=== PATIENT | female | born 1985 | race Caucasian/White ===

== ENCOUNTER 2016-09-13 02:44 | Inpatient (IN) | payer MEDICAID ==
[~2016-09-13] VITALS: Ht 154.9 cm; Wt 56.0 kg
[2016-09-13] VITALS (31 sets, daily range): BP systolic 87–124; BP diastolic 43–66; PULSE 88–129; RESP 15–20; TEMP 98; Ht 154.9 cm; Wt 56.0 kg
[~2016-09-13 02:44] MED LIST: IBUP800T25 PO; PERCOCET PO; PREN1TAB62 PO
--- NOTE | 2016-09-13 03:39 | ERD ---
ER Documentation Chief Complaint Date/Time DATE: 09/13/16 TIME: 03:36 Chief Complaint PELVIC PAIN AND VOMITING AND BURNING PAIN UPON URINATION HPI 31-year-old female complaining of vomiting 2-3 hours. Patient had 5 episodes of vomiting. She has diarrhea as well. Complaining of abdominal pain and pelvic pain. The abdominal pain comes every 5 minutes, very strong. The pain is not relieved with diarrhea. Denies flank pain. Denies dysuria. Denies fever or chills. Denies vaginal bleeding. Patient is on Depo-Provera, last injection was 08/22/2016. LMP 07/15/2016. ROS All systems reviewed and are negative except as per history of present illness. Medications Home Meds Active Scripts Oxycodone Hcl/Acetaminophen (Percocet) 1 Tab Tab, 2 TAB PO Q4H Y for PAIN LEVEL 6-10, #30 TAB 0 Refills Prov:LONNIE GEE MD 09/28/15 Ibuprofen* (Ibuprofen*) 800 Mg Tab, 800 MG PO Q8, #20 TAB 0 Refills Prov:LONNIE GEE MD 09/28/15 Reported Medications Vit-Iron Fumarate-FA ( Vitamin Tablet) 1 Each Tablet, 1 TAB PO DAILY, TAB 09/25/15 Allergies Allergies: Coded Allergies: No Known Allergy (Unverified , 09/26/15) PMhx/Soc Medical and Surgical Hx: pt denies Medical Hx History of Surgery: Yes (c/section x2) Hx Alcohol Use: No Hx Substance Use: No Hx Tobacco Use: No Smoking Status: Never smoker Physical Exam Vitals Vital Signs Date Time Temp Pulse Resp B/P Pulse Ox O2 Delivery O2 Flow Rate FiO2 09/13/16 05:02 97.8 77 16 88/65 100 Room Air 09/13/16 02:47 98.2 83 20 101/55 97 Physical Exam General impression: Well-developed, well-nourished. Alert, oriented, in no acute distress Head: Normocephalic, atraumatic. Respiration: Normal respiratory effort. Lungs clear to auscultate bilaterally. No wheezes, rales or rhonchi. Cardiovascular: Regular rate and rhythm. No murmurs or extra heart sounds. Abdomen: Abdomen normal to inspection. Diffuse abdominal tenderness, with right lower quadrant more than the rest. No rebound or guarding. No masses or organomegaly. Bowel sounds normal. Back: Normal to inspection. No midline spine tenderness. No CVA tenderness. Neuro: Mental status normal, speech normal. Skin: Normal turgor. No rash or lesions. Psych: Normal mood and affect. Result Diagram: 09/13/16 0338 09/13/16 0338 Results 24 hrs Laboratory Tests Test 09/13/16 03:35 09/13/16 03:38 09/13/16 04:27 Activated Partial Thromboplast Time 23.3Sec INR International Normalized Ratio 1.01 Prothrombin Time 13.3Sec Prothrombin Time Ratio 1.0 Alanine Aminotransferase (ALT/SGPT) 29IU/L Albumin 4.1g/dl Albumin/Globulin Ratio 1.20 Alkaline Phosphatase 82IU/L Anion Gap 17 Aspartate Amino Transf (AST/SGOT) 15IU/L Basophils # 0.010^3/ul Basophils % 0.1% Blood Urea Nitrogen 11mg/dl Calcium Level 9.1mg/dl Carbon Dioxide Level 25mmol/L Chloride Level 104mmol/L Creatinine 0.57mg/dl Direct Bilirubin 0.00mg/dl Eosinophils # 0.010^3/ul Eosinophils % 0.1% Globulin 3.40g/dl Glucose Level 129mg/dl Hematocrit 36.6% Hemoglobin 12.7g/dl Indirect Bilirubin 0.3mg/dl Lipase 86U/L Lymphocytes # 1.410^3/ul Lymphocytes % 7.1% Mean Corpuscular Hemoglobin 30.3pg Mean Corpuscular Hemoglobin Concent 34.8g/dl Mean Corpuscular Volume 87.1fl Mean Platelet Volume 8.9fl Monocytes # 0.710^3/ul Monocytes % 3.6% Neutrophils # 17.210^3/ul Neutrophils % 89.1% Nucleated Red Blood Cells # 0.010^3/ul Nucleated Red Blood Cells % 0.0/100WBC Platelet Count 02390^3/UL Potassium Level 3.6mmol/L Red Blood Count 4.2010^6/ul Red Cell Distribution Width 13.2% Sodium Level 142mmol/L Total Bilirubin 0.3mg/dl Total Protein 7.5g/dl White Blood Count 19.310^3/ul Urine Bacteria MANY Urine Bilirubin 1+ Urine Clarity CLEAR Urine Color YELLOW Urine Glucose NEGATIVE% Urine Hemoglobin 3+ Urine Ictotest NEGATIVE Urine Ketones NEGATIVE Urine Leukocyte Esterase NEGATIVE Urine Microscopic RBC 10-25/HPF Urine Microscopic WBC 2-5/HPF Urine Nitrite NEGATIVE Urine Specific [place] >=1.030 Urine Squamous Epithelial Cells MANY Urine Total Protein 1+ Urine Urobilinogen 1.0 E.U./dL Urine pH 6.0 Current Medications Medications (Trade) Dose Ordered Sig/Eun Route PRN Reason Start Time Stop Time Status Last Admin Dose Admin Acetaminophen 650 mg 650 mg ONCE ONCE PO 09/13/16 04:00 09/13/16 04:01 DC 09/13/16 03:44 Sodium Chloride (NS) 1,000 ml @ 1,000 mls/hr Q1H ONCE IV 09/13/16 04:30 09/13/16 05:29 DC 09/13/16 04:13 Morphine Sulfate (morphine) 4 mg ONCE STAT IV 09/13/16 04:55 09/13/16 04:56 DC Ondansetron HCl (Zofran Inj) 4 mg ONCE STAT IV 09/13/16 04:55 09/13/16 04:56 DC Procedures/MDM Tylenol given to the patient in the ED for pain. Normal saline 1 L bolus also given to the patient. WBC 19.3. CMP and lipase unremarkable. Urine test is positive. OB ultrasound is ordered. Live right adnexal ectopic is seen on ultrasound, with trace free fluid. Beta hCG quant pending at this time. Dr. Bowen is notified. I also contacted the laborist correction officer supervisor, Dr. Wong. Patient is transferred to ED [address] Bowen' care awaiting admission. Patient condition at time of transfer: Stable. KRIS HADDAD NP Sep 13, 2016 03:39
[2016-09-13 03:54] LABS: BASOPHILS % 0.1 % (0.0-2.0); EOSINOPHILS % 0.1 % (0.0-7.0); HEMATOCRIT 36.6 % (37.0-47.0); HEMOGLOBIN 12.7 g/dl (12.0-16.0); LYMPHOCYTES # 1.4 10^3/ul (0.8-2.9); LYMPHOCYTES % 7.1 % (15.0-51.0); MEAN CORPUSCULAR HEMOGLOBIN 30.3 pg (29.0-33.0); MEAN CORPUSCULAR HGB CONC 34.8 g/dl (32.0-37.0); MEAN CORPUSCULAR VOLUME 87.1 fl (82.0-101.0); MEAN PLATELET VOLUME 8.9 fl (7.4-10.4); MONOCYTE # 0.7 10^3/ul (0.3-0.9); MONOCYTES % 3.6 % (0.0-11.0); NEUTROPHIL # 17.2 10^3/ul (1.6-7.5); NEUTROPHILS % 89.1 % (39.0-77.0); PLATELET COUNT 224 10^3/UL (140-440); RED CELL DISTRIBUTION WIDTH 13.2 % (11.5-14.5); UNCORRECTED WBC 19.3 10^3/ul (4.8-10.8); WHITE BLOOD COUNT 19.3 10^3/ul (4.8-10.8)
[2016-09-13 03:56] LABS: CONDITION 1
[2016-09-13 03:59] LABS: ALBUMIN 4.1 g/dl (3.3-4.9)
[2016-09-13 04:00] LABS: POTASSIUM 3.6 mmol/L (3.5-5.1)
[2016-09-13] MEDS ORDERED: ACETAMINOPHEN 325 MG TAB PO ONE (04:00)
[2016-09-13 04:02] LABS: ALBUMIN/GLOBULIN RATIO 1.2; BILIRUBIN,INDIRECT 0.3 mg/dl (0-1.1); BILIRUBIN,TOTAL 0.3 mg/dl (0.2-1.3); CREATININE 0.57 mg/dl (0.44-1.00); TOTAL PROTEIN 7.5 g/dl (6.1-8.1)
[2016-09-13 04:03] LABS: CALCIUM 9.1 mg/dl (8.4-10.2)
[2016-09-13] MEDS ORDERED: SOD CHLORIDE 0.9% 1,000 ML IV ONE (04:30)
[2016-09-13 04:39] LABS: ADD UMIC YES; URINE BILIRUBIN (Dip) 1+ (NEGATIVE); URINE BLOOD (Dip) 3+ (NEGATIVE); URINE COLOR YELLOW (YELLOW); URINE GLUCOSE (Dip) NEGATIVE (NEGATIVE); URINE KETONES (Dip) NEGATIVE (NEGATIVE); URINE LEUKOCYTE ESTERASE (Dip) NEGATIVE (NEGATIVE); URINE NITRITE (Dip) NEGATIVE (NEGATIVE); URINE TOTAL PROTEIN (Dip) 1+ (NEGATIVE); URINE UROBILINOGEN (Dip) 1.0 E.U./dL (0.1-1.0)
[2016-09-13] MEDS ORDERED: morphine 4 MG/ML VIAL IV STA (04:55)
[2016-09-13] MEDS ORDERED: ONDANSETRON 4 MG INJ IV STA (04:55)
--- NOTE | 2016-09-13 05:04 | RADRPT ---
PROCEDURE: US OB. CLINICAL INDICATION: OB pain TECHNIQUE: Transabdominal and endovaginal imaging of the uterus is available for review COMPARISON: None available FINDINGS: Within the right adnexa, there is a gestational sac containing a pole with crown rump length o f 0.76 cm and heart rate of 136 beats per minute. The uterus is suboptimally imaged. The end ometrium was not imaged. There is small free fluid in the pelvis. IMPRESSION: Live right adnexal ectopic . There suboptimal imaging of the uterus and endometrium, the e xact location of the ectopic is difficult to determine. Additional images of the uterus and endomet rium are recommended to exclude interstitial ectopic. RPTAT: HH .Yecenia Lara MD, Date Time Electronically viewed and signed by .Yecenia Lara MD, on 09/13/2016 05:04 .G/
[2016-09-13 05:10] LABS: INR 1.01; PROTIME 13.3 Sec (12.2-14.2)
[2016-09-13 05:11] LABS: PARTIAL THROMBOPLASTIN TIME 23.3 Sec (25.0-35.0)
[2016-09-13 05:28] LABS: ICTOTEST NEGATIVE (NEGATIVE); SQUAMOUS EPITHELIAL CELL,UR MANY
[2016-09-13 05:29] LABS: BACTERIA,URINE MANY
[2016-09-13] MEDS ORDERED: SOD CHLORIDE 0.9% 1,000 ML IV STA (07:10)
[2016-09-13] MEDS ORDERED: LACTATED RINGER'S 1,000 ML IV SCH ×2 (08:00→13:30)
[2016-09-13] MEDS ORDERED: CEFAZOLIN 2 GM/50 ML (PMX) 50 ML IVPB ONE (10:00)
[2016-09-13] MEDS ORDERED: LIDOCAINE 100 MG SYRINGE ONE (10:55)
[2016-09-13] MEDS ORDERED: ROCURONIUM 50 MG INJ ONE (10:55)
[2016-09-13] MEDS ORDERED: GLYCOPYRROLATE 0.4 MG INJ ONE (10:55)
[2016-09-13] MEDS ORDERED: MIDAZOLAM 1 MG/ML 2 ML INJ ONE (10:55)
[2016-09-13] MEDS ORDERED: PROPOFOL 20 ML ONE (10:55)
[2016-09-13] MEDS ORDERED: NEOSTIGMINE 3 MG/3 ML SYRINGE ONE (10:55)
[2016-09-13] MEDS ORDERED: FENTAnyl 50 MCG/ML VIAL ONE (10:55)
[2016-09-13] MEDS ORDERED: ONDANSETRON 4 MG INJ ONE (10:56)
[2016-09-13] MEDS ORDERED: DEXAMETHASONE 4 MG/ML 1 ML INJ ONE (10:56)
[2016-09-13] MEDS ORDERED: morphine SULFATE/PF (10 MG/10 ML) INJ ONE (10:57)
[2016-09-13] MEDS ORDERED: ALBUMIN HUMAN 5% 500 ML ONE (11:49)
[2016-09-13] MEDS ORDERED: PHENYLephrine (100 MCG/ML) 5ML SYG ONE (11:51)
[2016-09-13] MEDS ORDERED: FENTAnyl 50 MCG/ML VIAL IV PRN ×2 (13:00)
[2016-09-13] MEDS ORDERED: hydrALAzine 20 MG INJ IV PRN (13:00)
[2016-09-13] MEDS ORDERED: DIPHENHYDRAMINE 50 MG INJ IV PRN (13:00)
[2016-09-13] MEDS ORDERED: MEPERIDINE 25 MG INJ IV PRN (13:00)
[2016-09-13] MEDS ORDERED: TRIMETHOBENZAMIDE 100 MG/ML VIAL IM PRN (13:00)
[2016-09-13] MEDS ORDERED: HYDROmorphONE (0.2 MG/ML) 10ML SYG IV PRN ×3 (13:00)
[2016-09-13] MEDS ORDERED: MIDAZOLAM 1 MG/ML 2 ML INJ IV PRN (13:00)
[2016-09-13] MEDS ORDERED: ONDANSETRON 4 MG INJ IV PRN ×3 (13:00→13:30)
[2016-09-13] MEDS ORDERED: EPHEDrine SULFATE 50 MG/5 ML SYG IV PRN (13:00)
[2016-09-13] MEDS ORDERED: LABETALOL HCL 20MG INJ IV PRN (13:00)
[2016-09-13] MEDS: FENTAnyl 50 MCG/ML VIAL IV PRN ×2 (13:19→13:27)
[2016-09-13] MEDS ORDERED: morphine 4 MG/ML VIAL IV PRN ×2 (13:30)
[2016-09-13] MEDS ORDERED: HYDROCODONE/APAP (5/325) TAB PO PRN ×4 (13:30→18:00)
[2016-09-13] MEDS ORDERED: IBUPROFEN 800 MG TAB PO PRN ×2 (13:30)
[2016-09-13 14:33] LABS: ADD UMIC NO; URINE BILIRUBIN (Dip) NEGATIVE (NEGATIVE); URINE BLOOD (Dip) NEGATIVE (NEGATIVE); URINE COLOR LT. YELLOW (YELLOW); URINE KETONES (Dip) NEGATIVE (NEGATIVE); URINE LEUKOCYTE ESTERASE (Dip) NEGATIVE (NEGATIVE); URINE NITRITE (Dip) NEGATIVE (NEGATIVE); URINE TOTAL PROTEIN (Dip) NEGATIVE (NEGATIVE); URINE UROBILINOGEN (Dip) 0.2 E.U./dL (0.1-1.0)
--- NOTE | 2016-09-13 15:53 | HP ---
DATE OF ADMISSION: 09/13/2016 HISTORY OF PRESENT ILLNESS: The patient is a 31-year-old G3, P2 who presents to the hospital compla ining of severe abdominal pain. PAST MEDICAL HISTORY: None. PAST SURGICAL HISTORY: x2. MEDICATIONS: None. PHYSICAL EXAMINATION: VITAL SIGNS: Stable. HEART: Regular rhythm. LUNGS: Clear to auscultation bilaterally. ABDOMEN: Soft, tender to palpation in lower quadrant. EXTREMITIES: There is no edema. DIAGNOSTIC DATA: The patient's ultrasound shows ectopic on the right side, possible inters titial ectopic . HCG is 18,000 and patient complaining of severe pain. ASSESSMENT: A 31-year-old with a right ectopic , possible interstitial. The patient has hi story of 2 C-sections prior the patient was taken to OR for a mini laparotomy, probable right salpingectomy. Risks and benefits discussed. The risk of infection, bleeding, damage to organs, po ssibility of blood transfusion all discussed with patient. Patient understood the risks and consent ed to the procedure. Dictated By: JACE SUTTON MD /NTS Conf#: [id number] DID#: [id number]
[2016-09-13] MEDS: LACTATED RINGER'S 1,000 ML IV SCH ×2 (18:21→21:30)
[2016-09-13 18:39] LABS: HEMATOCRIT 24.3 % (37.0-47.0); HEMOGLOBIN 8.1 g/dl (12.0-16.0); MEAN CORPUSCULAR HEMOGLOBIN 30.1 pg (29.0-33.0); MEAN CORPUSCULAR HGB CONC 33.1 g/dl (32.0-37.0); MEAN PLATELET VOLUME 8.2 fl (7.4-10.4); PLATELET COUNT 134 10^3/UL (140-440); RED BLOOD COUNT 2.67 10^6/ul (4.20-5.40); RED CELL DISTRIBUTION WIDTH 13.4 % (11.5-14.5); UNCORRECTED WBC 11.3 10^3/ul (4.8-10.8); WHITE BLOOD COUNT 11.3 10^3/ul (4.8-10.8)
[2016-09-13 18:45] LABS: CONDITION 1; LH ANALYZER COMMENTS 1
[2016-09-13 21:21] LABS: LYMPHOCYTES # 0.5 10^3/ul (0.8-2.9); MONOCYTE # 0.3 10^3/ul (0.3-0.9); NEUTROPHIL # 10.4 10^3/ul (1.6-7.5)
[2016-09-14] VITALS (11 sets, daily range): BP systolic 82–101; BP diastolic 41–56; PULSE 71–98; RESP 16–20
[2016-09-14 01:11] LABS: HEMATOCRIT 22.8 % (37.0-47.0); HEMOGLOBIN 7.8 g/dl (12.0-16.0); LYMPHOCYTES # 0.7 10^3/ul (0.8-2.9); LYMPHOCYTES % 6.4 % (15.0-51.0); MEAN CORPUSCULAR HGB CONC 34.2 g/dl (32.0-37.0); MEAN CORPUSCULAR VOLUME 90.6 fl (82.0-101.0); MEAN PLATELET VOLUME 8.6 fl (7.4-10.4); MONOCYTE # 0.4 10^3/ul (0.3-0.9); MONOCYTES % 3.7 % (0.0-11.0); NEUTROPHIL # 10.2 10^3/ul (1.6-7.5); NEUTROPHILS % 89.9 % (39.0-77.0); PLATELET COUNT 139 10^3/UL (140-440); RED BLOOD COUNT 2.52 10^6/ul (4.20-5.40); RED CELL DISTRIBUTION WIDTH 13.3 % (11.5-14.5); UNCORRECTED WBC 11.3 10^3/ul (4.8-10.8); WHITE BLOOD COUNT 11.3 10^3/ul (4.8-10.8)
[2016-09-14 01:14] LABS: CONDITION 1; LH ANALYZER COMMENTS 1
[2016-09-14] MEDS: LACTATED RINGER'S 1,000 ML IV SCH ×4 (05:39→22:47)
--- NOTE | 2016-09-14 07:32 | OPR ---
DATE OF OPERATION: 09/06/2016 PREOPERATIVE DIAGNOSIS: Right ectopic . POSTOPERATIVE DIAGNOSIS: Right ectopic . OPERATION PERFORMED: Mini laparotomy with a right partial salpingectomy. SURGEON: Justino Sutton MD FINDINGS: Right ectopic , close to the fimbria that was ruptured approximately 5 to 750 mL of hemoperitoneum. ANESTHESIOLOGIST: Bienvenido Ramos MD ANESTHESIA: General. BLOOD PRODUCTS USED IS: One unit of packed red blood cells. The specimen is some probable products of conception that was found in the abdomen and sent to pathology. INDICATIONS: The patient is a 31-year-old who presented with abdominal pain. The patient was diagn osed with a right ectopic . At this point, the patient presented for laparotomy and possibl e salpingectomy. Risks and benefits discussed. The risk of infection, bleeding, damage to organs, possibility of blood transfusion all discussed with patient. Patient understood the risks and conse nted to the procedure. DESCRIPTION OF PROCEDURE: The patient was taken to the operating room where general anesthesia was found to be adequate. Patient was then prepped, draped in normal sterile fashion. ID was confirmed . Using a scalpel, a mini laparotomy incision made, incision taken down to underlying fascia. The fascia nicked in the midline and extended laterally in both directions using the Barker scissors. The fascia taken off the rectus muscle superiorly using the knife midline identified and entered bluntl y. Incision was extended superiorly and inferiorly large amount of blood and hemoperitoneum was not ed. This was suctioned and the bowels were then packed away with some laps. The fallopian tube on the right side was grasped with a [place], although, the patient had a ruptured ectopic on the right side at the fallopian tube that was very close to the fimbrial end. This was clamped. Ex amination of the ovaries appeared normal. The left tubes and ovaries appeared normal. A right salp ingectomy was done with three ties of 0 Vicryl. Post this, the incision was clean, dry and intact. The large amount of blood clots were removed from the patient's abdomen. the patient would be nefit from 1 unit of packed red blood cells as approximately 500 to 750 mL minimum mL emptied in the abdomen. One unit of packed red blood cells was transfused, copious clots were removed. Irrigation was performed. On second look of the fallopian tube and ovary were normal. Right fallopian tube w hich was removed was clean, dry and intact. The ovary was normal. There was no further bleeding. A t this point, the rectus muscles and peritoneum were brought back together with a 2-0 Vicryl. The f ascia was closed with #1 Vicryl. The subcutaneous fat was closed with 2-0 plain. Skin was closed w ith vin. Lap and needle counts were correct x2, and patient was stable to recovery. Dictated By: JUSTINO SUTTON MD /NTS Conf#: [id number] DID#: [id number]
[2016-09-14 08:41] LABS: BASOPHILS % 0.1 % (0.0-2.0); HEMATOCRIT 26.3 % (37.0-47.0); HEMOGLOBIN 9.1 g/dl (12.0-16.0); LYMPHOCYTES # 1.1 10^3/ul (0.8-2.9); LYMPHOCYTES % 9.9 % (15.0-51.0); MEAN CORPUSCULAR HEMOGLOBIN 31.2 pg (29.0-33.0); MEAN CORPUSCULAR HGB CONC 34.4 g/dl (32.0-37.0); MEAN CORPUSCULAR VOLUME 90.7 fl (82.0-101.0); MEAN PLATELET VOLUME 9.1 fl (7.4-10.4); MONOCYTE # 0.8 10^3/ul (0.3-0.9); MONOCYTES % 7.4 % (0.0-11.0); NEUTROPHIL # 9.2 10^3/ul (1.6-7.5); NEUTROPHILS % 82.6 % (39.0-77.0); PLATELET COUNT 131 10^3/UL (140-440); RED CELL DISTRIBUTION WIDTH 13.4 % (11.5-14.5); UNCORRECTED WBC 11.1 10^3/ul (4.8-10.8); WHITE BLOOD COUNT 11.1 10^3/ul (4.8-10.8)
[2016-09-14 08:52] LABS: CONDITION 1
--- NOTE | 2016-09-14 14:05 | PN ---
Date/Time of Note Date/Time of Note DATE: 09/14/16 TIME: 13:55 OB Subjective Subjective Subjective September 14, 2016. Post Op progress note: This patient is a 31 years old 3 para 2 who delivered both of her children by section. She was admitted in the hospital yesterday with complaint of abdominal pain, nausea and vomiting. The diagnosis of right ruptured ectopic was made and patient underwent a laparotomy and removal of the right tube with ectopic last night. Today she is afebrile abdomen is soft, bowel sounds are audible, chest is clear. Apparently she has lost at least 700 cc over. She was given 2 units of packed cell . After transfusion today her last hemoglobin hematocrit at 830 was 9.1 g her blood pressure is a slightly low 80/50 however she is comfortable no dizziness no nausea.. Laboratory Tests Test 09/13/16 18:10 09/14/16 00:35 09/14/16 07:19 Band Neutrophils % 1.0% Basophils # 10^3/ul 0.010^3/ul 0.010^3/ul Basophils % % 0.0% 0.1% Eosinophils # 10^3/ul 0.010^3/ul 0.010^3/ul Eosinophils % % 0.0% 0.0% Hematocrit 24.3% 22.8% 26.3% Hemoglobin 8.1g/dl 7.8g/dl 9.1g/dl Lymphocytes # 0.510^3/ul 0.710^3/ul 1.110^3/ul Lymphocytes % 4.0% 6.4% 9.9% Mean Corpuscular Hemoglobin 30.1pg 31.0pg 31.2pg Mean Corpuscular Hemoglobin Concent 33.1g/dl 34.2g/dl 34.4g/dl Mean Corpuscular Volume 91.0fl 90.6fl 90.7fl Mean Platelet Volume 8.2fl 8.6fl 9.1fl Monocytes # 0.310^3/ul 0.410^3/ul 0.810^3/ul Monocytes % 3.0% 3.7% 7.4% Neutrophils # 10.410^3/ul 10.210^3/ul 9.210^3/ul Neutrophils % 92.0% 89.9% 82.6% Nucleated Red Blood Cells # 10^3/ul 0.010^3/ul 0.010^3/ul Nucleated Red Blood Cells % /100WBC 0.0/100WBC 0.0/100WBC Platelet Count 10986^3/UL 85589^3/UL 69969^3/UL Red Blood Count 2.6710^6/ul 2.5210^6/ul 2.9010^6/ul Red Cell Distribution Width 13.4% 13.3% 13.4% White Blood Count 11.310^3/ul 11.310^3/ul 11.110^3/ul Blood Morphology Comment Current Medications Medications (Trade) Dose Ordered Sig/Eun Route PRN Reason Start Time Stop Time Status Last Admin Dose Admin Acetaminophen 650 mg 650 mg ONCE ONCE PO 09/13/16 04:00 09/13/16 04:01 DC 09/13/16 03:44 Sodium Chloride (NS) 1,000 ml @ 1,000 mls/hr Q1H ONCE IV 09/13/16 04:30 09/13/16 05:29 DC 09/13/16 04:13 Morphine Sulfate (morphine) 4 mg ONCE STAT IV 09/13/16 04:55 09/13/16 04:56 DC 09/13/16 07:10 Ondansetron HCl 4 mg 4 mg ONCE STAT IV 09/13/16 04:55 09/13/16 04:56 DC 09/13/16 07:09 Sodium Chloride 1,000 ml @ 1,000 mls/hr Q1H STAT IV 09/13/16 07:10 09/13/16 08:09 DC 09/13/16 07:19 Lactated Ringer's 1,000 ml @ 125 mls/hr Q8H IV 09/13/16 08:00 09/13/16 18:07 DC 09/13/16 08:00 Cefazolin Sodium/ Dextrose (Ancef 2 Gm/50 ml (Pmx)) 50 ml @ 100 mls/hr ONCE ONCE IVPB 09/13/16 10:00 09/13/16 10:29 DC Hydromorphone HCl (Dilaudid (Rec)) 0.2 mg PACU ORDER PRN IV MILD PAIN LEVEL 1-3 09/13/16 13:00 09/13/16 18:00 DC Hydromorphone HCl (Dilaudid (Rec)) 0.4 mg PACU ORDER PRN IV MODERATE PAIN LEVEL 4-6 09/13/16 13:00 09/13/16 18:00 DC Hydromorphone HCl (Dilaudid (Rec)) 0.6 mg PACU ORDER PRN IV SEVERE PAIN LEVEL 7-10 09/13/16 13:00 09/13/16 18:00 DC Fentanyl (Sublimaze) 25 mcg PACU ORDER PRN IV MILD PAIN LEVEL 1-3 09/13/16 13:00 09/13/16 18:00 DC Fentanyl (Sublimaze) 50 mcg PACU ODER PRN IV MODERATE PAIN LEVEL 4-6 09/13/16 13:00 09/13/16 18:00 DC 09/13/16 13:27 Fentanyl (Sublimaze) 75 mcg PACU ORDER PRN IV SEVERE PAIN LEVEL 7-10 09/13/16 13:00 09/13/16 18:00 DC Ondansetron HCl (Zofran Inj) 4 mg PACU ORDER PRN IV NAUSEA AND/OR VOMITING 09/13/16 13:00 09/13/16 18:00 DC 09/13/16 13:19 Trimethobenzamide HCl (Tigan) 200 mg PACU ORDER PRN IM NAUSEA AND/OR VOMITING 09/13/16 13:00 09/13/16 18:00 DC Labetalol HCl (Labetalol) 5 mg PACU ORDER PRN IV HIGH BLOOD PRESSURE 09/13/16 13:00 09/13/16 18:00 DC Hydralazine HCl (Apresoline) 5 mg PACU ORDER PRN IV HIGH BLOOD PRESSURE 09/13/16 13:00 09/13/16 18:00 DC Ephedrine Sulfate 5 mg PACU ORDER PRN IV MAP LESS THAN 60 09/13/16 13:00 09/13/16 18:00 DC Meperidine HCl (Demerol) 25 mg PACU ORDER PRN IV POST-OP RIGORS 09/13/16 13:00 09/13/16 18:00 DC Diphenhydramine HCl (Benadryl) 25 mg PACU ORDER PRN IV PRURITUS 09/13/16 13:00 09/13/16 18:00 DC Midazolam HCl 0.5 mg 0.5 mg PACU ORDER PRN IV ANXIETY 09/13/16 13:00 09/13/16 18:00 DC Lactated Ringer's (Lr) 1,000 ml @ 125 mls/hr Q8H IV 09/13/16 13:30 09/14/16 05:39 Morphine Sulfate (morphine) 3 mg Q3H PRN IV PAIN 09/13/16 13:30 Ibuprofen (Motrin) 800 mg Q6H PRN PO PAIN 09/13/16 13:30 Acetaminophen/ Hydrocodone Bitart ([place] (5/325)) 1 tab Q4H PRN PO PAIN 09/13/16 13:30 09/13/16 18:04 DC Acetaminophen/ Hydrocodone Bitart ([place] (5/325)) 2 tab Q4H PRN PO PAIN 09/13/16 13:30 09/13/16 18:04 DC Ondansetron HCl (Zofran Inj) 4 mg Q6H PRN IV NAUSEA AND/OR VOMITING 09/13/16 13:30 Morphine Sulfate (morphine) 3 mg Q3H PRN IV PAIN 09/13/16 13:30 UNV Ibuprofen (Motrin) 800 mg Q6H PRN PO PAIN 09/13/16 13:30 UNV Acetaminophen/ Hydrocodone Bitart ([place] (5/325)) PAIN LEVEL 4-7 Q6H PRN PO PAIN LEVEL 4-7 09/13/16 13:30 UNV Ondansetron HCl 4 mg 4 mg Q6H PRN IV NAUSEA AND/OR VOMITING 09/13/16 13:30 UNV Lactated Ringer's (Lr) 1,000 ml @ 125 mls/hr Q8H IV 09/13/16 13:30 UNV Rocuronium [place] 50 mg 50 mg STK-MED ONCE .ROUTE 09/13/16 10:55 09/13/16 16:45 DC Propofol (Diprivan) 20 ml @ ud STK-MED ONCE .ROUTE 09/13/16 10:55 09/13/16 16:45 DC Glycopyrrolate ([place]) 0.4 mg STK-MED ONCE .ROUTE 09/13/16 10:55 09/13/16 16:45 DC Neostigmine Methylsulfate (Neostigmine) 3 mg STK-MED ONCE .ROUTE 09/13/16 10:55 09/13/16 16:45 DC Lidocaine (Lidocaine Syg) 100 mg STK-MED ONCE .ROUTE 09/13/16 10:55 09/13/16 16:46 DC Fentanyl (Sublimaze) 100 mcg STK-MED ONCE .ROUTE 09/13/16 10:55 09/13/16 16:46 DC Midazolam HCl (Versed) 2 mg STK-MED ONCE .ROUTE 09/13/16 10:55 09/13/16 16:46 DC Ondansetron HCl (Zofran Inj) 4 mg STK-MED ONCE .ROUTE 09/13/16 10:56 09/13/16 16:46 DC Acetaminophen/ Hydrocodone Bitart ([place] (5/325)) 1 tab Q6 PRN PO PAIN 09/13/16 18:00 Acetaminophen/ Hydrocodone Bitart ([place] (5/325)) 2 tab Q6 PRN PO PAIN 09/13/16 18:00 Dexamethasone (Decadron) 4 mg STK-MED ONCE .ROUTE 09/13/16 10:56 09/13/16 18:34 DC Morphine Sulfate 10 mg 10 mg STK-MED ONCE .ROUTE 09/13/16 10:57 09/13/16 18:34 DC Albumin Human 500 ml @ ud STK-MED ONCE .ROUTE 09/13/16 11:49 09/13/16 18:34 DC Phenylephrine HCl (Nick-Synephrine Inj Syg) 500 mcg STK-MED ONCE .ROUTE 09/13/16 11:51 09/13/16 18:34 DC The plan is to ambulate her and to repeat H&H around 4:00 this afternoon and that of dictation thank you CONCETTA FLORES MD Sep 14, 2016 14:05
[2016-09-14 16:38] LABS: HEMATOCRIT 28.6 % (37.0-47.0); HEMOGLOBIN 9.8 g/dl (12.0-16.0)
[2016-09-14] MEDS: HYDROCODONE/APAP (5/325) TAB PO PRN (18:25)
[2016-09-15] MEDS: HYDROCODONE/APAP (5/325) TAB PO PRN (00:48)
[2016-09-15] MEDS: LACTATED RINGER'S 1,000 ML IV SCH (05:30)
[2016-09-15 08:07] VITALS: BP 115/55; RESP 20
[2016-09-15] MEDS ORDERED: NORE-92 PO ×3 (10:22→10:41)
[2016-09-15] MEDS ORDERED: FERR325C PO (10:24)
[2016-09-15] MEDS ORDERED: DOCU-144 PO (10:24)
[2016-09-15] MEDS ORDERED: HYDR-906 PO (10:25)
[2016-09-15] MEDS ORDERED: IBUP-1542 PO (10:26)
--- NOTE | 2016-09-15 11:20 | PN ---
Date/Time of Note Date/Time of Note DATE: 09/15/16 TIME: 10:54 Assessment/Plan VTE Prophylaxis VTE Prophylaxis Intervention: ambulation Lines/Catheters IV C[facility] Type [facility]from [facility] Peripheral IV Urinary Cath still in place: No Assessment/Plan Chief Complaint/Hosp Course HD #3 S/p [place] and partial right salpingectomy for ruptured right tubal ectopic . Anemia due to intra peritoneal bleeding secondary to ruptured ectopic . S/p blood transfusion 2 units Hb stable. Asymptomatic now. Doing well. Patient is currently breast feeding. has a 11 months age infant. I have discussed with the patient in detail regarding in detail regarding effective reliable contraception. I advised the patient to be started immediately on oral contraceptive pills today with a close follow-up with her ic design manager in 1 week after discharge home. Explained increased risk of ectopic in this . Advised that the immediate care with her next as soon as she has a positive test. Advised to be started on control immediately. Next Follow-up with medical social worker within a week for staple removal and follow-up She can discuss about long-term control with her own HOSPICE HOME CARE COORDINATOR as outpatient. Continue iron twice a day with stool softener. Problems: Subjective 24 Hr Interval Summary Free Text/Dictation Patient's pain well controlled with medication. Ambulating, tolerated regular diet. Passed flatus. Denies any Chest pain or Shortness of breath. Denies any lightheadadness, urinated. Constitutional: no complaints Eyes: no complaints ENT: no complaints Respiratory: no complaints Cardiovascular: no complaints Gastrointestinal: no complaints Genitourinary: no complaints Musculoskeletal: no complaints Skin: no complaints Neurologic: no complaints Endocrine: no complaints Lymphatic: no complaints Psychological: no complaints Immunologic: no complaints Exam/Review of Systems Vital Signs Vitals Vital Signs Date Time Temp Pulse Resp B/P Pulse Ox O2 Delivery O2 Flow Rate FiO2 09/15/16 08:07 98.4 60 20 115/55 95 09/14/16 17:30 Room Air 09/13/16 21:00 2.0 Intake and Output 09/14/16 09/14/16 09/15/16 15:00 23:00 07:00 Intake Total 1000 ml 2380 ml 750 ml Output Total 3500 ml Balance 1000 ml -1120 ml 750 ml Exam Constitutional: alert, oriented, well developed Psych: nl mood/affect, no complaints Head: atraumatic, normocephalic Eyes: EOMI, nl conjunctiva, nl lids ENMT: nl external ears & nose, nl lips & teeth Neck: non-tender, supple Respiratory: clear to auscultation, normal air movement Cardiovascular: nl pulses, regular rate and rhythm Gastrointestinal: other (appropriate tenderness over the lower abdominal incision, moderately distended. tympanic. Normal bowel sounds audible. incision clean, dry and intact ), soft Genitourinary - Female: other (Deferred pelvic examination.) Neurological: INTERNAL AFFAIRS COMMANDER II-XII intact, nl mental status, nl speech, nl strength Skin: nl turgor Results Result Diagram: 09/14/16 1615 09/13/16 0338 Results 24 hrs Laboratory Tests Test 09/14/16 16:15 Hematocrit 28.6 L Hemoglobin 9.8 L Medications Medications Current Medications Lactated Ringer's (Lr) 1,000 ml @ 125 mls/hr Q8H IV Last administered on 22:47; Admin Dose 125 MLS/HR; Start 09/13/16 at 13:30 Morphine Sulfate (morphine) 3 mg Q3H PRN IV PAIN; Start 09/13/16 at 13:30 Ibuprofen (Motrin) 800 mg Q6H PRN PO PAIN; Start 09/13/16 at 13:30 Ondansetron HCl (Zofran Inj) 4 mg Q6H PRN IV NAUSEA AND/OR VOMITING; Start at 13:30 Acetaminophen/ Hydrocodone Bitart ([place] (5/325)) 1 tab Q6 PRN PO PAIN Last administered on 09/15/16 00:48; Admin Dose 1 TAB; Start 09/13/16 at 18:00 Acetaminophen/ Hydrocodone Bitart ([place] (5/325)) 2 tab Q6 PRN PO PAIN; Start 09/13/16 at 18:00 SHERI COOPER MD Sep 15, 2016 11:20
--- NOTE | 2016-09-15 11:24 | DS ---
Date/Time of Note Date/Time of Note DATE: 09/15/16 TIME: 11:21 Discharge Summary Admission/Discharge Info Admit Date/Time Sep 13, 2016 at 10:11 Discharge Date/Time Final Diagnosis Ruptured right ectopic Status post mini laparotomy and right partial salpingectomy. Consults SHREDDING MACHINE OPERATOR Procedures Minilaparotomy with right partial salpingectomy due to ruptured ectopic Hx of Present Illness 31-year-old female admitted through the emergency room with complaint of abdominal pain and positive test as well as evidence of intraperitoneal hemorrhage consistent with right ruptured ectopic . She underwent mini laparotomy with partial right salpingectomy. She received blood transfusion as well. Her intraoperative course was uncomplicated. Postoperative course was also an uncomplicated except that mild anemia due to intraperitoneal hemorrhage. She received 2 units of blood transfusion. She remained hemodynamically stable during her hospital stay. On hospital day #3 she was noted to be stable enough to be discharged home. She was ambulated. Tolerated regular diet. Passed flatus. Had normal bowel function. Her vitals were stable and she was asymptomatic. Her hemoglobin at discharge was 9.8 Hospital Course HD #3 S/p Minilaparatomy and partial right salpingectomy for ruptured right tubal ectopic . Anemia due to intra peritoneal bleeding secondary to ruptured ectopic . S/p blood transfusion 2 units Hb stable. Asymptomatic now. Doing well. Patient is currently breast feeding. has a 11 months age infant. I have discussed with the patient in detail regarding in detail regarding effective reliable contraception. I advised the patient to be started immediately on oral contraceptive pills today with a close follow-up with her information technology data analyst in 1 week after discharge home. Explained increased risk of ectopic in this . Advised that the immediate care with her next as soon as she has a positive test. Advised to be started on control immediately. Next Follow-up with housekeeping associate within a week for staple removal and follow-up She can discuss about long-term control with her own SHREDDING MACHINE OPERATOR as outpatient. Continue iron twice a day with stool softener. Home Meds Reported Medications Ibuprofen* (Ibuprofen*) 600 Mg Tablet, 600 MG PO Q4 for PAIN, TAB 09/15/16 Hydrocodone/Acetaminophen ([place] 5-325 Tablet) 1 Each Tablet, 1 EACH PO Q6 for PAIN, TAB 09/15/16 Docusate Sodium* (Colace*) 100 Mg Capsule, 100 MG PO BID for CONSTIPATION, #60 CAP 09/15/16 Ferrous Sulfate (Iron) 325 Mg Capsule.er, 325 MG PO BID, CAP 09/15/16 Norethindrone AC-Eth Estradiol (Loestrin 21 1-20 Tablet) 1 Each Tablet, 1 EACH PO DAILY, TAB 09/15/16 Discontinued Reported Medications Norethindrone AC-Eth Estradiol (Loestrin 21 1-20 Tablet) 1 Each Tablet, 1 EACH PO DAILY, TAB 09/15/16 Norethindrone AC-Eth Estradiol (Loestrin 21 1-20 Tablet) 1 Each Tablet, 1 EACH PO DAILY, TAB 09/15/16 Vit-Iron Fumarate-FA ( Vitamin Tablet) 1 Each Tablet, 1 TAB PO DAILY, TAB 09/25/15 Discontinued Scripts Oxycodone Hcl/Acetaminophen (Percocet) 1 Tab Tab, 2 TAB PO Q4H Y for PAIN LEVEL 6-10, #30 TAB 0 Refills Prov:LONNIE GEE MD 09/28/15 Ibuprofen* (Ibuprofen*) 800 Mg Tab, 800 MG PO Q8, #20 TAB 0 Refills Prov:LONNIE GEE MD 09/28/15 Follow-up Plan Follow-up after discharge home in 1 week with her information technology data analyst Patient was a started in the control pill immediately after discharge. Importance of close follow-up after discharge with any episodes of due to risk of recurrence of ectopic Discussed with the patient. Patient verbalized understanding. She will discuss about her contraceptive options including Depo-Provera versus contraceptive implants with her information technology data analyst at her outpatient visit. Advised to continue taking iron twice a day with stool softener. Pending Labs Laboratory Tests Test 09/14/16 16:15 Hematocrit 28.6% (37.0-47.0) Hemoglobin 9.8g/dl (12.0-16.0) SHERI COOPER MD Sep 15, 2016 11:24
== END 2016-09-15 14:00 | disposition home or self-care (01) | DRG 777 ==
LOC: FTE 02:44 → SDS 10:10 → MS2 10:11 → SDS 10:11 → UNDOFXSDCACCOM 17:35 → MS2 17:35 → UNDOFXSDCSVC 17:35 → SDS 17:35 → MS2 09-14 06:14 → SDS 09-14 06:14
PROC: 10T20ZZ Resection of Products of Conception, Ectopic, Open Approach (ICD-10-PCS; 2016-09-13)
PROC: 30243N1 Transfusion of Nonautologous Red Blood Cells into Central Vein, Percutaneous Approach (ICD-10-PCS; 2016-09-13)
PROC: 0UB50ZZ Excision of Right Fallopian Tube, Open Approach (ICD-10-PCS; principal; 2016-09-13 13:30)
DX: O00.10 Tubal pregnancy without intrauterine pregnancy (principal); D62 Acute posthemorrhagic anemia
CPT/HCPCS: 36415; 36430; 76801; 80053; 81001; 81003; 83690; 84702; 85014; 85018; 85025; 85610; 85730; 86850; 86900; 86901; 86920; 87086; 88305; 96361; 96374; 96375; J0690; J1100; J2001; J2250; J2270; J2274; J2370; J2405; J2710; J3010; J7030; J7120; P9016; P9045

== ENCOUNTER 2016-09-24 11:09 | Emergency (ER) | payer MEDICAID ==
[~2016-09-24] VITALS: Wt 65.0 kg
[~2016-09-24 11:09] MED LIST changes: +DOCU-144 PO; +FERR325C PO; +HYDR-906 PO; +IBUP-1542 PO; -IBUP800T25 PO; +NORE-92 PO; -PERCOCET PO; -PREN1TAB62 PO
[2016-09-24] MEDS ORDERED: BAC30OI TOP (12:30)
--- NOTE | 2016-09-24 15:32 | ERD ---
ER Documentation Chief Complaint Date/Time DATE: 09/24/16 TIME: 15:30 Chief Complaint SUTURE REMOVAL HPI This patient is a 31-year-old female who is 10 days post section presenting today to the emergency department for staple removal from incision site. The patient denies any pain, discharge, fevers, or other abnormal symptoms. The patient has been taking acetaminophen and antibiotics at home. She believes the name of the antibiotic is Keflex. ROS All systems reviewed and are negative except as per history of present illness. Medications Home Meds Active Scripts Bacitracin* (Bacitracin Zinc Oint*) 28.35 Gm Oint, 1 APPLIC TOP BID for 5 Days, #1 TUB APPLI TO Prov:ANGEL HARTLEY PA-C 09/24/16 Reported Medications Ibuprofen* (Ibuprofen*) 600 Mg Tablet, 600 MG PO Q4 for PAIN, TAB 09/15/16 Hydrocodone/Acetaminophen ([place] 5-325 Tablet) 1 Each Tablet, 1 EACH PO Q6 for PAIN, TAB 09/15/16 Docusate Sodium* (Colace*) 100 Mg Capsule, 100 MG PO BID for CONSTIPATION, #60 CAP 09/15/16 Ferrous Sulfate (Iron) 325 Mg Capsule.er, 325 MG PO BID, CAP 09/15/16 Norethindrone AC-Eth Estradiol (Loestrin 21 1-20 Tablet) 1 Each Tablet, 1 EACH PO DAILY, TAB 09/15/16 Allergies Allergies: Coded Allergies: No Known Allergy (Unverified , 09/13/16) PMhx/Soc History of Surgery: Yes ( ) Anesthesia Reaction: No Hx Neurological Disorder: No Hx Respiratory Disorders: No Hx Cardiac Disorders: No Hx Psychiatric Problems: No Hx Miscellaneous Medical Probl: No Hx Alcohol Use: No Hx Substance Use: No Hx Tobacco Use: No Smoking Status: Never smoker FmHx Noncontributory for chief complaint Physical Exam Vitals Vital Signs Date Time Temp Pulse Resp B/P Pulse Ox O2 Delivery O2 Flow Rate FiO2 09/24/16 11:18 98.0 101 16 107/58 99 Physical Exam INITIAL VITAL SIGNS: Reviewed by me. GENERAL: Alert and interactive. No acute distress. HEAD: Head is normocephalic and atraumatic. EYES: EOMI. No scleral icterus. No conjunctival injection. ENT: Moist mucosa. NECK: Supple. Full range of motion. RESPIRATORY: Normal respiratory effort. Clear breath sounds bilaterally. No wheezing, rales, or rhonchi. CV: Regular rate and rhythm. Normal S1 S2. No S3 or S4. No murmurs. ABDOMEN: Soft, non-distended, non-tender. No guarding. No rebound. No masses. SUPRAPUBIC: There is a well-healing section incision without significant erythema, warmth, or discharge from the area. There is no active bleeding from the incision site. EXTREMITIES: No deformity. SKIN: Warm and dry. NEUROLOGIC: Alert and oriented x 4. Speech is normal. Moves all extremities equally. No motor or sensory deficits noted. Procedures/MDM 31-year-old female presents secondary to complaints of needing olivier removed from her section incision site. On physical examination the patient's vitals are within normal limits. She is afebrile giving the low concern for infection. There is no discharge, active bleeding, warmth, or foul-smelling odor from the incision site. Staple Removal by me: Olivier removed with staple remover without incident. Wound shows no evidence of infection, foreign body, neurologic injury, vascular injury, open joint or tendon laceration. Patient to follow up PRN. I doubt very much any cellulitis, septicemia, or other emergent conditions at this time. The patient was given a prescription for bacitracin to apply to the wound twice daily. She agrees with the discharge diagnosis and plan. All questions and concerns were addressed and the patient was hemodynamically prior stable to discharge. Departure Diagnosis: Primary Impression: Encounter for removal of olivier Condition: Fair Patient Instructions: Staple Removal, No Complication Referrals: [facility] () Usted se turner hecho un examen mdico de control que le indica que no est en kathy condicin que requiera tratamiento urgente en el Departamento de Emergencia. Un estudio ms profundo y el tratamiento de laws condicin pueden esperar sin ningn riesgo hasta que usted sea atendida/o en el consultorio de laws mdico o kathy cl ronnell. Es responsabilidad suya arreglar kathy rogers para el seguimiento del nuno. MANEJO DE CONDICIONES NO URGENTES EN EL FUTURO 1) Si usted tiene un mdico de atencin primaria: Usted debera llamar a laws mdico de atencin primaria antes de venir al departamento de emergencia. Despus de las horas de consultorio, laws doctor o laws asociado/a est disponible por telfono. El mdico o enfermero de deanne en el servicio telefnico puede asesorarle por arlene medio para atender el problema, o nuno contrario se puede programar kathy rogers. 2) Si usted no tiene un mdico de atencin primaria: Llame al mdico o clnica de referencia que aparece abajo luigi las horas de consultorio para hacer kathy rogers para que le vean. CLINICAS: [facility] [phone] [facility] [phone] [facility] [phone] [facility] [phone] [facility] [phone] [address] [phone] [address] Additional Instructions: No mas mejor en 2-3 fernandez, regresar. Mas peor en 24 horas, regresear rapidamente. Ir a doctor primario in 5-7 fernandez. Usar instrucciones cuando tona medicamento. ANGEL HARTLEY PA-C Sep 24, 2016 15:32
== END 2016-09-24 12:42 | disposition home or self-care (01) ==
LOC: FTE 11:09
DX: Z48.02 Encounter for removal of sutures (principal)
CPT/HCPCS: 99283